=== PATIENT | male | born 1965 ===

== ENCOUNTER 2018-03-23 23:22 | Emergency (ER) | payer SELFPAY ==
[2018-03-23 23:34] VITALS: RESP 18; O2SAT 98
[2018-03-24] MEDS ORDERED: Tetracaine 0.5% Ophth 2 ML BOTTLE ONE (00:35)
[2018-03-24] MEDS ORDERED: PROPARACAINE/FLUORESCEIN SOD 100 DROP/5 ML BOTTLE ONE (00:37)
--- NOTE | 2018-03-24 02:52 | ED PDOC ---
HPI: Eye Injury/Pain Time Seen by Provider: 03/23/18 23:44 Chief Complaint (Nursing): Eye Problem Chief Complaint (Provider): Left Eye Problem History Per: Patient History/Exam Limitations: no limitations Onset/Duration Of Symptoms: Days (x3) Current Symptoms Are (Timing): Still Present Additional Complaint(s): 52 y/o male with a PMHx of bilateral cataracts presenting for evaluation of left eye foreign body x3 days. Patient states he was cleaning on Friday and scraping metal when a piece of the metal flew off into his left eyelid. Patient reports he had a foreign body sensation and some left eye blurriness. Patient states later that evening he had complete vision loss to the L eye that lasted a few minutes and when he regained his vision it was blurry. Patient states he was able to walk home from to after at night. He states when he went to sleep that night and woke up he had no vision in his left eye and is only able to see light, no color x3 days. 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 Patient denies any headache, dizziness, eye pain, fever, chest pain, shortness of breath, or other complaints. Past Medical History Reviewed: Historical Data, Nursing Documentation, Vital Signs Vital Signs: Last Vital Signs Temp 98.3 F 03/23/18 23:30 Pulse 85 03/23/18 23:30 Resp 18 03/23/18 23:30 BP 133/87 03/23/18 23:30 Pulse Ox 98 03/23/18 23:30 - Medical History Other PMH: Cataracts (bilateral) - Surgical History Surgical History: No Surg Hx - Family History Family History: States: Unknown Family Hx - Allergies Allergies/Adverse Reactions: Allergies Allergy/AdvReac Type Severity Reaction Status Date / Time No Known Allergies Allergy Verified 03/23/18 23:44 Review of Systems ROS Statement: Except As Marked, All Systems Reviewed And Found Negative Constitutional: Negative for: Fever Eyes: Positive for: Vision Change (left eye vision loss), Other (left eye foriegn body sensation) Cardiovascular: Negative for: Chest Pain Respiratory: Negative for: Shortness of Breath Neurological: Negative for: Headache Physical Exam - Reviewed Nursing Documentation Reviewed: Yes Vital Signs Reviewed: Yes - Physical Exam Comments: GENERAL APPEARANCE: Patient is awake, alert, oriented x 3, in no acute distress. HEENT: (-) facial swelling and erythema, (-) facial blisters. LIDS & LASHES: Normal. PUPILS: PEERL. Pupils cloudy in appearance. EOM's: Intact. LID EVERSION: (+) 3 foreign bodies in the inner aspect of the left upper eyelid. CONJUNCTIVAE: (+) pterygium to both eyes, (+) left conjunctival injection. CORNEA: (-) abrasion, (-) ulcer ANTERIOR CHAMBER: (-) foreign body, (-) tear in iris, (-) hyphema. FUNDUSCOPIC: (-) foreign body, (-) hemorrhage. FLUORESCEIN: (-) uptake. NECK: (-) tenderness, (-) stiffness, (-) meningismus, (-) lymphadenopathy. CHEST AND RESPIRATORY: (-) rales, (-) rhonchi, (-) wheezes; breath sounds equal bilaterally. HEART AND CARDIOVASCULAR: (-) irregularity; (-) murmur, (-) gallop. ABDOMEN AND GI:Soft; (-) tenderness. EXTREMITIES: (-) deformity. NEURO AND PSYCH: Mental status as above. 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 Strengthsymmetric. - ECG O2 Sat by Pulse Oximetry: 98 (RA) Pulse Ox Interpretation: Normal Medical Decision Making Medical Decision Making: Plan: - Ophthalmology consult - CT orbits Attempted to remove the foreign body in left upper eyelid by PA using a Q-tip and 18 gauge needle, but was unsuccessful. Case discussed with Dr. Bolden who can see patient in the morning in his office at 08:00 for further evaluation. Also discussed case with ER MD. Decision made to obtain CT of orbits, but otherwise agrees with current management. CT orbits : FINDINGS: Orbits: There is no evidence of retro-bulbar hemorrhage. There is no evidence of globe or lens injury. Sinuses: Normal. No air-fluid levels. 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 No acute fracture. Soft tissues: Normal. IMPRESSION: No CT evidence for acute LEFT orbit/globe pathology. Dictated and Authenticated by: Kit Pozo MD 03/24/2018 3:57 AM Eastern Time ([place] & [place]) Diagnostic results d/w the patient in great detail. Patient instructed to follow-up with Dr. Allen this morning at 8 am without fail. Return to the emergency room at any time for any new or worsening symptoms. Patient states he fully agrees with and understands discharge instructions. States that he agrees with the plan and disposition. Verbalized and repeated discharge instructions and plan. I have given the patient opportunity to ask any additional questions. ----- Scribe Attestation: Documented by Mark Anthony Sanchez, acting as a scribe for Elenita Ryan PA-C. Provider Scribe Attestation: All medical record entries made by the Scribe were at my direction and personally dictated by me. I have reviewed the chart and agree that the record accurately reflects my personal performance of the history, physical exam, medical decision making, and the department course for this patient. I have also personally directed, reviewed, and agree with the discharge instructions and disposition. Disposition - Clinical Impression Clinical Impression: Foreign body in eye, Vision loss, left eye Counseled Patient/Family Regarding: Studies Performed, Diagnosis, Need For Followup - Disposition Referrals: Curry Allen MD [Staff Provider] - Disposition: Routine/Home Disposition Time: 04:00 Condition: STABLE Additional Instructions: Please go immediately to Dr. Allen's office this morning at 8 am for further evaluation. Instructions: Age-Related Vision Loss, Foreign Body in Eye Forms: [employer] (Albanian) Print Language: FAROESE - PA / CORNER FORMER / Resident Statement MD/DO has reviewed & agrees with the documentation as recorded.
[2018-03-24 05:19] VITALS: BP 124/82; PULSE 92; TEMP 98.5
--- NOTE | 2018-03-24 09:14 | CT ---
PROCEDURE: ORBITS CT WITHOUT CONTRAST HISTORY: L eye visual loss COMPARISON: None. TECHNIQUE: A volumetric CT acquisition was performed through the orbits without intravenous contrast as requested. Reformatted datasets provided in sagittal axial coronal planes. Contrast Dose: None Radiation dose:Total exam DLP = 515.48 mGy-cm. This CT exam was performed using one or more of the following dose reduction techniques: Automated exposure control, adjustment of the mA and/or kV according to patient size, and/or use of iterative reconstruction technique. FINDINGS: Right lens appears small suggesting prior cataract surgery or nonsurgical destructive process. Clinically correlate further. The remainder of the right globe appears unremarkable. The bilateral intra and extraconal components are unremarkable with the bilateral optic nerves appearing symmetric in size and normal in overall caliber. The extra-ocular muscle pattern appears unremarkable with preseptal soft tissues normal appearing as well. No fracture of the bony orbit is appreciated on an acute basis instill note is made of leftward bony nasal septal deviation. Visualized brain parenchyma is unremarkable as imaged and the paranasal sinuses are remarkable for prominent mucosal plantar changes right maxillary sinus. IMPRESSION: 1. Possible prior cataract surgery right globe. Bilateral orbits are otherwise symmetric and unremarkable appearing. Clinically correlate further. 2. Incidental right maxillary sinus disease and leftward bony nasal septal deviation.
== END 2018-03-24 04:35 | disposition home or self-care (01) ==
LOC: H.ER 23:22
DX: T15.11XA Foreign body in conjunctival sac, right eye, initial encounter (principal); H54.62 Unqualified visual loss, left eye, normal vision right eye